=== PATIENT | female | born 1940 | race African-American/Black ===

== ENCOUNTER 2020-10-22 20:20 | Inpatient (IN) | payer OTHER ==
[~2020-10-22] VITALS: Ht 144.8 cm; Wt 45.4 kg
[2020-10-22 20:36] VITALS: BP 176/61; TEMP 98.9
[2020-10-22 21:00] VITALS: BP 174/60
[2020-10-22 21:13] LABS: PLATELET COUNT 182 K/uL (152-353)
[2020-10-22 21:28] LABS: POTASSIUM 4.7 mmol/L (3.6-5.2); SODIUM 141 mmol/L (136-145)
[2020-10-22 21:30] VITALS: BP 175/59
[2020-10-22 21:32] LABS: PARTIAL THROMBOPLASTIN TIME 23.6 SECONDS (24.5-33.6)
[2020-10-22 22:00] VITALS: BP 173/60
[2020-10-22 23:00] VITALS: BP 172/58
[2020-10-22 23:30] VITALS: BP 174/60
[2020-10-23] VITALS (7 sets, daily range): BP systolic 104–169; BP diastolic 35–88; TEMP 98.1–99; Ht 144.8 cm; Wt 45.4 kg
[2020-10-23] MEDS ORDERED: OMEPRAZOLE DR40 MG PO (11:10)
[2020-10-23] MEDS ORDERED: GLIP10TA55 PO (11:11)
[2020-10-24 03:36] VITALS: BP 138/54; TEMP 98.6
[2020-10-24 08:00] VITALS: BP 156/57; TEMP 98.5
[2020-10-24 12:00] VITALS: BP 139/45; TEMP 99.1
[2020-10-24 16:00] VITALS: BP 114/47; TEMP 99.1
[2020-10-24 16:02] LABS: PLATELET COUNT 221 K/uL (152-353)
[2020-10-24 16:14] LABS: POTASSIUM 4.1 mmol/L (3.6-5.2)
[2020-10-24 20:00] VITALS: BP 123/41; TEMP 98.2
[2020-10-25] VITALS (7 sets, daily range): BP systolic 116–165; BP diastolic 30–76; TEMP 97.7–98.9
[2020-10-26 04:00] VITALS: BP 156/51; TEMP 98
[2020-10-26 05:22] LABS: PLATELET COUNT 201 K/uL (152-353)
[2020-10-26 05:38] LABS: POTASSIUM 4.2 mmol/L (3.6-5.2)
[2020-10-26 08:00] VITALS: BP 142/41; TEMP 98.1
[2020-10-26 12:00] VITALS: BP 143/49; TEMP 97.9
[2020-10-26] MEDS ORDERED: PANTOPRAZOLE 40MG TA PO (12:53)
[2020-10-26] MEDS ORDERED: LEVAQUIN250 MG PO (12:55)
[2020-10-26] MEDS ORDERED: ASA LOW DOSE81 MG PO (12:56)
[2020-10-26 16:00] VITALS: BP 156/53; TEMP 98.2
== END 2020-10-26 16:30 | disposition home or self-care (01) | DRG 195 ==
LOC: ED 20:20 → MED/SURG 23:15 → UNDODEPER 10-26 23:55
PROVIDERS: ADMIT Hospitalist; ATTEND Internal Medicine
DX: J18.8 Other pneumonia, unspecified organism (principal); R00.1 Bradycardia, unspecified; I10 Essential (primary) hypertension; K21.9 Gastro-esophageal reflux disease without esophagitis; E11.9 Type 2 diabetes mellitus without complications; J40 Bronchitis, not specified as acute or chronic
CPT/HCPCS: 36415; 80053; 81000; 82550; 82948; 83880; 84443; 84484; 85027; 85610; 85730; 87502; 87635; 93005; 94640; 94664; 94760; 96365; 96372; 96374; 96375; 99284; J1956; J1650; J1815; J1940; Q9963; U0003

== ENCOUNTER 2020-12-26 17:18 | Inpatient (IN) | payer OTHER ==
[~2020-12-26] VITALS: Ht 144.8 cm; Wt 43.7 kg
[~2020-12-26 17:18] MED LIST: ASA LOW DOSE81 MG PO; GLIP10TA55 PO; LEVAQUIN250 MG PO; OMEPRAZOLE DR40 MG PO; PANTOPRAZOLE 40MG TA PO
[2020-12-26 17:25] VITALS: BP 122/62; TEMP 98
[2020-12-26 17:45] VITALS: BP 120/62
[2020-12-26 17:52] LABS: PLATELET COUNT 178 K/uL (152-353)
[2020-12-26 18:07] LABS: POTASSIUM 3.8 mmol/L (3.6-5.2); SODIUM 137 mmol/L (136-145)
[2020-12-26 20:00] VITALS: BP 101/50
[2020-12-26 21:00] VITALS: BP 123/67
[2020-12-26 22:34] VITALS: BP 136/61; TEMP 100.6; Ht 144.8 cm; Wt 43.7 kg
--- NOTE | 2020-12-27 02:25 | NUR ---
PATIENT RESTING COMFORTABLY IN LOW FOWLERS POSITION WITH EYES CLOSED. NAD NOTED WITH PATIENT AT THIS TIME.
[2020-12-27 04:06] VITALS: BP 114/51; TEMP 98.1
--- NOTE | 2020-12-27 04:15 | NUR ---
PATIENT WAS GIVEN MEDICATION FOR PAIN IN HER ABDOMEN. THE PATIENT NOW REPORTS NO PAIN AND IS RESTING QUIETLY. AND BREATHING IS EVEN NON LABORED. PATIENT HAS TO HELPED TO BSC. PATIENT HAS NO BREAKDOWN.
[2020-12-27 07:37] LABS: PLATELET COUNT 137 K/uL (152-353)
[2020-12-27 07:48] LABS: POTASSIUM 3.5 mmol/L (3.6-5.2)
[2020-12-27 08:00] VITALS: BP 122/68; TEMP 98.36
--- NOTE | 2020-12-27 10:12 | NUR ---
0900 BILINGUAL STAFF EDUCATED PT ON USE OF IS. PT ABLE TO USE IS CORRECTLY
[2020-12-27 12:00] VITALS: BP 110/53; TEMP 99
--- NOTE | 2020-12-27 12:15 | NUR ---
3 BOTTLES HOME MEDS LOCKED UP IN HOME MED CABINET IN [facility] BAD OMEPRAZOLE, PROTONIX, ASA. AND 1 EMPTY BOTTLE OF GLIPIZIDE
[2020-12-27 16:00] VITALS: BP 111/50; TEMP 98.4
[2020-12-27 20:18] VITALS: BP 129/53; TEMP 99
[2020-12-27 23:58] VITALS: BP 129/57; TEMP 98.1
[2020-12-28 03:25] VITALS: BP 111/50; TEMP 98.2
[2020-12-28 03:57] LABS: PLATELET COUNT 160 K/uL (152-353)
[2020-12-28 07:52] VITALS: BP 129/55; TEMP 98.1
--- NOTE | 2020-12-28 09:53 | NUR ---
SPOKE WITH DR SAUER CONCERNING PATIENT NOT FOLLOWING UP WITH DR SIBLEY. A REFERRAL HAS BEEN SENT TO DR SIBLEY AND A REQUEST FOR HIM TO SEE THE PATIENT TUESDAY WHEN HE IS IN [place].
[2020-12-28 12:06] VITALS: BP 148/70; TEMP 98.2
--- NOTE | 2020-12-28 14:11 | NUR ---
PT HAS BEEN CONFUSED THIS SHIFT. SHE HAS STATED THERE ARE PEOPLE IN HER ROOM . NO ONE IN THE ROOM AT THE TIME SHE SAYS. PT IS ATTEMPTING TO GET OUT OF BED AND GET DRESSED TO LEAVE WITH [facility]. I CALLED THE SON TO TALK WITH HIM . HE STATED HIS MOTHER HAS SOME SORT OF SICKNESS THAT MAKES HER FORGET EASILY. I ASKED IF IT WAS DEMENTIA OR ALZHEIMERS. HE SAID HE COULD NOT TELL ME BECASUE HE WASNT SURE AND [facility] AND HE IS NOT SURE OF THE MD NAME THERE. SON IS TO VISIT TODAY BEFORE 8 PM.
[2020-12-28 16:00] VITALS: BP 161/71; TEMP 97.8
[2020-12-28 19:00] VITALS: BP 153/40; TEMP 98.7
[2020-12-28 23:31] VITALS: BP 158/75; TEMP 98.3
--- NOTE | 2020-12-29 02:54 | NUR ---
PATIENT WAS ANXIOUS AND WANTING TO PACE THE ROOM. PATIENT GAIT IS UNSTEADY AND HER BED ALARM IS ON. ER , DR WEIR ORDERED 0.5MG OF ATIVAN. PATIENT TOLERATED WELL AND IS NOW RESTING QUIETLY. BREATHS ARE STEADY AND NON LABORED
[2020-12-29 03:30] VITALS: BP 137/77; TEMP 97.8
--- NOTE | 2020-12-29 04:46 | NUR ---
HELPED PATIENT TO BSC, PATIENT IS UNSTEADY. REINFORCED TEACHING TO USE CALL LIGHT. BED ALARM ON
[2020-12-29 04:50] LABS: POTASSIUM 4.5 mmol/L (3.6-5.2)
[2020-12-29 04:53] LABS: PLATELET COUNT 215 K/uL (152-353)
[2020-12-29 08:00] VITALS: BP 114/95; TEMP 97.9
--- NOTE | 2020-12-29 11:58 | NUR ---
PT'S GLUCOSE DROPPED TO 59. HOSPITAL WARD CLERK CARRIED PT APPLE JUICE AND CHEESE ITS. HOSPITAL WARD CLERK VERBALIZED TO PT THAT BLOOD SUGAR WAS LOW AND THE SNACKS WERE TO HELP BRING IT BACK UP. PT DEMONSTRATED UNDERSTANDING BY SAYING "OKAY" AND EATING THE SNACKS.
[2020-12-29 12:00] VITALS: BP 138/74; TEMP 98.3
--- NOTE | 2020-12-29 15:07 | NUR ---
PT REQUESTED TO TAKE A SHOWER. CNP BROUGHT THE PT 3 TOWELS AND A WASHCLOTHS. LAID 1 TOWEL IN THE BOTTOM OF THE SHOWER TO PREVENT THE SHOWER FLOOR FROM GETTING SLIPPERY, ANOTHER TOWEL WAS PLACED ON THE FLOOR OUTSIDE OF THE SHOWER. ALSO BROUGHT A FRESH GOWN. IV WAS FLUSHED PRIOR TO WRAPPING. PT STATED THAT THE IV HURT WHILE BEING FLUSHED. WILL REASSES IV AFTER SHOWER.
[2020-12-29 16:00] VITALS: BP 143/65; TEMP 98
--- NOTE | 2020-12-29 17:05 | NUR ---
AFTER SHOWER PT STILL COMPLAINED OF PAIN WHEN IV IS FLUSHED. IV WAS REMOVED WITH CATHETER STILL INTACT. A NEW 22G WAS PLACED IN THE LT FOREARM BY LARY SIMENTAL LPN ON THE THIRD ATTEMPT.
[2020-12-29 20:00] VITALS: BP 154/71; TEMP 98.5
--- NOTE | 2020-12-29 21:38 | NUR ---
AWAKE LAYING IN BED WITH NO ACUTE DISTRESS OR PROBLEMS NOTED, RESP RATE NONLABORED, IV LOCK INTACT TO L FA WITH NO PROBLEMS NOTED TO SITE, DENIES ANY NEEDS AT THIS TIME, RAILS UP, CALL LIGHT IN REACH, BED IN LOW POSITION, ENCOURAGED TO CALL NEEDED. SOME LANGUAGE BARRIER PT SPEAKS TELUG[place].
[2020-12-30] VITALS: BP 138/77; TEMP 98.3
--- NOTE | 2020-12-30 00:20 | NUR ---
PT AROUSES TO CLINICAL PHARMACY COORDINATOR BEING IN ROOM, NO S/S OF PAIN OR DISTRESS NOTED, LANGUAGE BUT ASKED PT ABOUT PAIN OR PROBLEMS PT STATES NO, RESP RATE NONLABORED, IV INTACT TO L FA WITH NO PROBLEMS NOTED TO SITE(FLUSHED EASILY WITH 10ML NS BEFORE AND AFTER IV ANTIBIOTICS GIVEN GOOD BLOOD RETURN NOTED TO SITE). ASSISTED TO AND FROM BSC PT BACK IN BED WITH NO PROBLEMS NOTED, WILL MONITOR CLOSELY, RAILS UP X3, BED IN LOW POSITION, CALL LIGHT IN REACH, ENCOURAGED TO USE CALL LIGHT AND CALL NEEDED.
--- NOTE | 2020-12-30 00:56 | NUR ---
LANGUAGE BARRIER PT'S PRIMARY LANGUAGE IS MOHAWK. PT HELD LOWER ABD FROWNED AND STATES "PAIN". GAVE TYLENOL 500MG PO PRN FOR PAIN, PT TOOK PILL WHOLE WITH WATER WITH NO PROBLEMS NOTED. PT ASSISTED TO AND FROM BSC URINATED APPROX 25ML YELLOW URINE. WILL MONITOR CLOSELY, PT BACK IN BED, RAILS UP X3, BED IN LOW POSITION WITH CALL LIGHT IN REACH.
--- NOTE | 2020-12-30 01:30 | NUR ---
RESTING WITH EYES CLOSED, NO S/S OF PAIN SINCE PRN MEDICATION GIVEN, WILL MONITOR CLOSELY, RAILS UP X3, CALL LIGHT IN REACH, BED IN LOW POSITION.
[2020-12-30 04:00] VITALS: BP 136/65; TEMP 98.1
[2020-12-30 05:47] LABS: PLATELET COUNT 236 K/uL (152-353)
[2020-12-30 05:48] LABS: POTASSIUM 3.8 mmol/L (3.6-5.2)
[2020-12-30 08:00] VITALS: BP 150/83; TEMP 98.2
--- NOTE | 2020-12-30 08:00 | NUR ---
UPON MORNING ASSESSMENT PT STATED THAT SHE HAD PAIN IN HER CHEST. WHILE CHECKING FOR EDEMA IN THE LOWER LEGS FOOD SERVICE SPECIALIST TOUCHED THE LEFT LEG, PATIENT PULLED LEG BACK AND STATED "OW, PAIN". FOOD SERVICE SPECIALIST HAD PATIENT POINT TOES TOWARDS HEAD WHILE HOLDING LEGS STRAIGHT, PT DENIED PAIN WHILE DOING SO. DOCTOR WAS NOTIFIED AND PRN ACETAMINOPHEN WAS GIVEN.
--- NOTE | 2020-12-30 11:38 | NUR ---
LAB JUST LEFT FROM TAKING BLOOD DRAW FOR BLOOD CULTURE. WAGON WINDER ASSISTED PT TO THE BATHROOM. PT WALKED STEADILY WITHOUT ASSISTANCE. NAD WAS NOTED DURING TRANSFER TO THE BATHROOM.
[2020-12-30 12:00] VITALS: BP 137/70; TEMP 98
--- NOTE | 2020-12-30 13:45 | NUR ---
PT COMPLAINED OF NOT BEING ABLE TO PASS BOWEL. PT DEMONSTRATED THROUGH HAND MOTIONS AND BROKEN MOHAWK THAT SHE WAS CONSTIPATED AND DID NOT FEEL GOOD. PRN DOSE OF MILK OF MAGNESIA WAS GIVEN. WENT BACK IN 30 MINS TO REEVALUATE, PT STATED THAT SHE HAD A BOWEL MOVEMENT AND SAID "BETTER" TO INDICATE THAT SHE FELT BETTER AFTER PASSING THE BOWEL.
[2020-12-30 16:00] VITALS: BP 136/73; TEMP 98.3
--- NOTE | 2020-12-30 17:08 | NUR ---
ENTERED PT'S ROOM, PT IS IN THE BED COVERED UP. PT IS RUBBING RIGHT SHOULDER SAYING "PAIN". WHEN ASKED BY CALL CENTER MANAGER IF SHOULDER IS HURTING SHE SAYS "YES". PRN DOSE OF ACETAMINOPHEN IS GIVEN. NAD IS NOTED AT THIS TIME.
[2020-12-30 20:00] VITALS: BP 143/63; BP 143/87; TEMP 98.4; TEMP 98.6
--- NOTE | 2020-12-30 20:45 | NUR ---
ENTERED PATIENT'S ROOM. PATIENT AT DOOR ATTEMPTING TO COME OUT INTO THE HALLWAY. I INFORMED HER THAT SHE SHOULD USE THE CALL LIGHT ANY TIME THAT SHE NEEDS SOMETHING. SHE VERBALIZED UNDERSTANDING. PATIENT IS HARD TO UNDERSTAND DUE LANGUAGE BARRIER. 22G TO LEFT FA PATENT AND INTACT. NO SWELLING OR REDNESS NOTED. FLUSHED WITH NS. ABX STARTED AT THIS TIME. PATIENT DENIES PAIN AT THIS TIME. BED LOCKED AND IN LOWEST POSITION. NAD NOTED. CALL LIGHT WITHIN EASY REACH.
--- NOTE | 2020-12-30 21:10 | NUR ---
ABX D/C'D AT THIS TIME. 22G TO LEFT FA FLUSHED WITH NS.
--- NOTE | 2020-12-30 23:30 | NUR ---
PCT IN PATIENT'S ROOM FOR V/S. PATIENT IS UP AND DRESSED WALKING AROUND HER ROOM. SHE STATES THAT SHE FORGOT SHE WAS IN A HOSPITAL AND SHE WANTED TO LEAVE AND GO WITH PCT. DUE TO LANGUAGE BARRIER, PATIENT'S SON, MORIS (HIPAA CONTACT), CALLED AT THIS TIME. HE WAS ABLE TO SPEAK TO PATIENT AND REMIND HER THAT SHE WAS IN THE HOSPITAL AND NEEDED TO STAY HERE. MORIS STATES THAT SHE IS FORGETFUL AT TIMES, AND HER DOCTOR DID GIVE A DIAGNOSIS FOR HER FORGETFULNESS BUT WAS UNSURE WHAT IT WAS. HE DENIES HER BEING DIAGNOSED WITH DEMENTIA. HE WAS ABLE TO COMFORT PATIENT, AND SHE CHANGED BACK INTO A HOSPITAL GOWN AND GOT BACK INTO BED. CALL LIGHT WITHIN EASY REACH. NAD NOTED.
[2020-12-31] VITALS (7 sets, daily range): BP systolic 139–172; BP diastolic 61–97; TEMP 97.9–98.9
--- NOTE | 2020-12-31 01:10 | NUR ---
PATIENT SLEEPING QUIETLY IN BED WITH EYES CLOSED. RESPIRATIONS EVEN AND UNLABORED. NAD NOTED. CALL LIGHT WITHIN EASY REACH.
[2020-12-31 05:23] LABS: PLATELET COUNT 271 K/uL (152-353)
--- NOTE | 2020-12-31 16:20 | NUR ---
i spoke with pts son Govind Stanford [phone] while in the pts room. he stated that he wants her to return to his home on discharge and to fu with her PCP MARTHA Cordon @ [phone], pt is in agreement with this. her last visit with her pcp was 12/22 and fu is scheduled for 03/25 @ 1:30pm. He states he did not know that she needed to see a dairy clerk after her last visit. Per MARTHA Cordon's office, pt was last seen 12/22 and her AIC was 8.0, her only listed meds are Diclofenac 50mg bid, glipizide 5mg daily, and prilosec 40mg daily. Pts son Govind is asking for a home health nurse and pt is in agreement.
--- NOTE | 2020-12-31 16:24 | NUR ---
Per son Govind we may list his Constance Stanford [phone] as an alternate contact for pt.
--- NOTE | 2021-01-01 01:22 | NUR ---
PT HAS BEEN CONFUSED THIS SHIFT. PT IS SLEEPING AT THIS TIME.
[2021-01-01 04:25] VITALS: BP 168/78; TEMP 98
[2021-01-01 04:43] LABS: POTASSIUM 4.2 mmol/L (3.6-5.2)
[2021-01-01 04:54] LABS: PLATELET COUNT 272 K/uL (152-353)
--- NOTE | 2021-01-01 05:05 | NUR ---
0430: PT AWAKE WORRIED ABOUT NOT BEING ABLE TO GET IN TOUCH WITH HER SON. LISTENED TO PT AND REASSURED HER THAT IF SOMETHING HAD HAPPENED TO HIM THAT SHE WOULD BE INFORMED. PT STATED "OK I'LL WAIT TILL IN THE MORNING."
[2021-01-01 08:00] VITALS: BP 185/84; TEMP 98.1
[2021-01-01 12:00] VITALS: BP 133/62; TEMP 98.1
[2021-01-01 16:00] VITALS: BP 137/68; TEMP 98.4
[2021-01-01 20:00] VITALS: BP 134/59; TEMP 98.6
--- NOTE | 2021-01-01 23:40 | NUR ---
01/01/21 2303: PT AGITATED, HAS BEEN UP AND DOWN OUT OF BED, CALLING Q 10-15 MINUTES REQUESTING BSC, TOO HOT, TOO COLD. PT TO BSC AT LEAST 2X IN 30 MIN. PT VOIDING ONLY 50 ML TO NONE AT A TIME. BLADDER PALPATED BUT BLADDER IS NOT FULL. STRAIGHT CATHED FOR RETENTION, NO URINE RETURNED. ATIVAN 0.5MG GIVEN IV FOR AGITATION AND TO HELP PT REST.
[2021-01-02 04:18] VITALS: BP 159/71; TEMP 97.9
[2021-01-02 08:00] VITALS: BP 121/79; TEMP 98.1
--- NOTE | 2021-01-02 08:35 | NUR ---
IN WITH PT TO GIVE AM MEDS. PT WAS UPSET AND STATED THAT SOMETHING HAPPENED TO HER LAST NIGHT AND SHE DIDN'T WANT TO TELL ME. ENCOURAGED PT TO TELL ME WHAT WAS BOTHERING HER. PT STATED THAT PM NURSES "OPENED MY LEGS AND INSERTED SOMETHING INSIDE OF ME". EXPLAINED TO PT THAT NURSES INSERTED A CATHETER TO EMPTY BLADDER TO BE SURE THAT IT WAS EMPTYING COMPLETELY. PT VERBALIZED UNDERSTANDING. PT STATED THAT SHE WAS JUST WORRIED BECAUSE SHE DIDN'T UNDERSTAND WHAT THEY WERE DOING OR WHY. 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
[2021-01-02 12:00] VITALS: BP 132/72; TEMP 98.5
--- NOTE | 2021-01-02 16:56 | NUR ---
EDUCATED PT ON DISCHARGE INSTRUCTIONS. PT VERBALIZED UNDERSTANDING. CALLED PT'S SON TO ADVISE HIM THAT PT WAS READY TO GO HOME. HE STATED THAT HIS WOULD BE HERE AFTER 1700 TO PICK HER UP
--- NOTE | 2021-01-02 18:10 | NUR ---
PT ESCORTED OUT OF FACILITY VIA WC TO POV WITHOUT INCIDENT.
== END 2021-01-02 18:10 | disposition home or self-care (01) | DRG 193 ==
LOC: ED 17:18 → MED/SURG 20:30
PROVIDERS: ADMIT Family Medicine; ATTEND Internal Medicine Endocrinology, Diabetes & Metabolism
DX: J18.8 Other pneumonia, unspecified organism (principal); J96.01 Acute respiratory failure with hypoxia; R55 Syncope and collapse; E11.9 Type 2 diabetes mellitus without complications; K21.9 Gastro-esophageal reflux disease without esophagitis; I11.0 Hypertensive heart disease with heart failure; I50.9 Heart failure, unspecified; R62.7 Adult failure to thrive; Z68.20 Body mass index [BMI] 20.0-20.9, adult
CPT/HCPCS: 36415; 80048; 80053; 81000; 83605; 84484; 85007; 85027; 87040; 87077; 87185; 87205; 87635; 93005; 94640; 94664; 94760; 96365; 99283; 99284; J0456; J0696; J1650; J1815; J2060; J2175; J2405; U0003

== ENCOUNTER 2021-07-20 13:11 | Emergency (ER) | payer OTHER ==
[~2021-07-20] VITALS: Ht 144.8 cm; Wt 43.1 kg
[2021-07-20 14:00] LABS: PLATELET COUNT 493 K/uL (152-353)
[2021-07-20 14:11] LABS: POTASSIUM 4.7 mmol/L (3.6-5.2); SODIUM 137 mmol/L (136-145)
[2021-07-20 14:57] LABS: PARTIAL THROMBOPLASTIN TIME 20.8 SECONDS (24.5-33.6)
[2021-07-20 16:00] VITALS: BP 123/56; TEMP 98.2
== END 2021-07-20 16:00 | disposition home or self-care (01) ==
LOC: ED 13:11
PROVIDERS: Emergency Medicine
DX: J18.9 Pneumonia, unspecified organism (principal); E11.65 Type 2 diabetes mellitus with hyperglycemia; Z79.84 Long term (current) use of oral hypoglycemic drugs; Z20.822 Contact with and (suspected) exposure to COVID-19
CPT/HCPCS: 36415; 80053; 81000; 83880; 84484; 85027; 85379; 85610; 85730; 87635; 93005; 99283; J0696; U0003

== ENCOUNTER 2021-12-17 07:44 | Outpatient (CLI) | payer OTHER ==
[2021-12-17 08:32] LABS: PLATELET COUNT 184 K/uL (152-353)
[2021-12-17 08:46] LABS: POTASSIUM 4.2 mmol/L (3.6-5.2)
== END 2021-12-17 19:06 | disposition home or self-care (01) ==
LOC: LABW 07:44
PROVIDERS: ATTEND Family Medicine
DX: M19.90 Unspecified osteoarthritis, unspecified site (principal); M54.89 Other dorsalgia; E11.65 Type 2 diabetes mellitus with hyperglycemia; E55.9 Vitamin D deficiency, unspecified; N95.8 Other specified menopausal and perimenopausal disorders
CPT/HCPCS: 36415; 80053; 80061; 81000; 82306; 83036; 84439; 84443; 85027

== ENCOUNTER 2022-01-07 13:06 | Outpatient (CLI) | payer OTHER | END 2022-01-07 20:01 | disposition home or self-care (01) | LOC: RAD 13:06 | PROVIDERS: ATTEND Family Medicine | DX: I49.8 Other specified cardiac arrhythmias (principal); E11.65 Type 2 diabetes mellitus with hyperglycemia ==

== ENCOUNTER 2022-03-11 13:31 | Emergency (ER) | payer OTHER ==
[~2022-03-11] VITALS: Ht 144.8 cm; Wt 43.1 kg
[2022-03-11 13:50] VITALS: TEMP 98
[2022-03-11] MEDS ORDERED: SULFACETAMID10 % OPTH (14:37)
[2022-03-11 14:52] VITALS: BP 118/78
== END 2022-03-11 14:53 | disposition home or self-care (01) ==
LOC: ED 13:31
DX: H10.89 Other conjunctivitis (principal)
CPT/HCPCS: 99283

== ENCOUNTER 2022-06-22 11:36 | Outpatient (CLI) | payer OTHER ==
[~2022-06-22 11:36] MED LIST changes: +SULFACETAMID10 % OPTH
== END 2022-06-22 18:51 | disposition home or self-care (01) ==
LOC: RAD 11:36
PROVIDERS: ATTEND Family Medicine
DX: M25.561 Pain in right knee (principal); M25.562 Pain in left knee; M25.511 Pain in right shoulder

== ENCOUNTER 2023-01-24 07:42 | Emergency (ER) | payer OTHER ==
[~2023-01-24] VITALS: Ht 147.3 cm; Wt 42.2 kg
[2023-01-24 07:47] VITALS: TEMP 99.2
[2023-01-24 08:56] LABS: PLATELET COUNT 230 K/uL (152-353)
[2023-01-24 09:03] LABS: POTASSIUM 3.6 mmol/L (3.6-5.2)
[2023-01-24 10:23] VITALS: BP 153/72
== END 2023-01-24 10:33 | disposition home or self-care (01) ==
LOC: ED 07:42
PROVIDERS: Emergency Medicine Emergency Medical Services
DX: J20.9 Acute bronchitis, unspecified (principal); Z20.822 Contact with and (suspected) exposure to COVID-19; I50.9 Heart failure, unspecified
CPT/HCPCS: 80053; 81002; 83880; 84484; 85027; 87040; 87502; 87635; 93005; 94664; 96365; 99284; J0696; U0003

== ENCOUNTER 2023-06-04 23:12 | Emergency (ER) | payer OTHER ==
[~2023-06-04] VITALS: Ht 147.3 cm; Wt 47.6 kg
[2023-06-05 01:42] VITALS: BP 148/60; TEMP 98.6
== END 2023-06-05 01:42 | disposition home or self-care (01) ==
LOC: ED 23:12
DX: S32.511A Fracture of superior rim of right pubis, initial encounter for closed fracture (principal); W19.XXXA Unspecified fall, initial encounter
CPT/HCPCS: 96372; 99283; J1885